=== PATIENT | female | born 1935 | race Caucasian/White ===

== ENCOUNTER 2017-02-28 02:14 | Emergency (ER) | payer MEDICARE ==
[~2017-02-28] VITALS: Ht 160 cm; Wt 65.9 kg
[~2017-02-28 02:14] MED LIST: ASPI-628 PO; CALCIT PO; CHOL400T PO; DETROL LA4 M1 PO; DILT120C8 PO; DOCU50CA7 PO; HYDR25TA4 PO; LISI-567 PO; SENN-122 PO
[2017-02-28 02:27] VITALS: BP 129/80; PULSE 60; RESP 12; O2SAT 99
--- NOTE | 2017-02-28 02:44 | ED.REPORT ---
HPI-Head Prob / Injury Date of Service Feb 28, 2017 ED Provider: Quincy Goodman MD The pt is a 81 y/o female w/ a hx of CHF, HTN and Parkinsons disease presenting to the ED due a head injury. She received a laceration to her L eyebrow after falling out of her bed. While she was on the ground she felt a strange sensation in her chest. It felt like a painful situation when she would turn her torso to the right or left. She did not strike her chest on the ground. Currently her chest is not hurting at all. There was no injury to the chest during the fall. Denies LOC or chest pain currently. Nursing Notes Stated Complaint: FALL/HIT HEAD Chief Complaint: Head injury Nursing Notes Reviewed: Yes Allergies: Coded Allergies: No Known Drug Allergies (Verified Allergy, Unknown, 02/28/17) Scheduled Aspirin (Aspir 81) 81 Mg Tablet.dr 81 MG PO DAILY Calcium Citrate (Calcium Citrate) 250 Mg Tablet 250 MG PO verify med Cholecalciferol (Vitamin D3) (Vitamin D3) 400 Unit Tablet 400 UNIT PO verify med Diltiazem ER (Diltiazem ER) 120 Mg Cap.er.deg 120 MG PO DAILY Hydrochlorothiazide (Hydrochlorothiazide) 25 Mg Tablet 25 MG PO DAILY Lisinopril (Lisinopril) 20 Mg Tablet 20 MG PO DAILY Tolterodine Tartrate ER (Detrol LA) 4 Mg Cap.sr.24h 4 MG PO DAILY Scheduled PRN Docusate Sodium (Docusate Sodium) 50 Mg Capsule 50 MG PO HS PRN PRN prn Sennosides (Vegetable Laxative) 8.6 Mg Tablet 2 TAB PO DAILY PRN PRN For Constipation General Time Seen by Provider: 03:58 Chief Complaint Other (Head injury ) Hx Obtained From: Patient Arrived By: Walk-in Onset Occurred: Just prior to arrival Symptom Duration: Since onset Recent Healthcare: No recent hospitalization, Recent doctor visit Similar Sx Previous: No Risk-Head Prob / Injury )( IC Bleed Risk Strat Blood thinners RF Statements: Risk factors reviewed Head CT Imaging Inclusion Criteria: >/= 16 yo age Non Contrast CT Indicated For: >/= 60 yrs Age Consider Non Contrast CT for: >/= 60 yo Age Fall > 3ft. Bleeding Risk Stratification RF Statements: Risk factors reviewed Past Medical History Past Medical History CHF Parkinsons disease HTN Past Surgical History None reported Smoking History Unknown if Ever Smoker Social History Other Social History: Good social support Ambulatory Status Independent Review of Systems Denies chest pain currently; + L eyebrow laceration; Neurologic: Reports: Headache, Denies: Change LOC Complete sys rev & neg: except as marked. Physical Exam Initial Vital Signs Vital Signs (First) Date Time Temp Pulse Resp B/P Pulse Ox O2 Delivery O2 Flow Rate FiO2 02/28/17 02:27 36.6 60 12 129/80 99 Room Air Initial VS: Reviewed, Vital signs normal Respiratory: Breath sounds normal, Clear to auscultation, No respiratory distress Cardiovascular: Regular rate & rhythm, Heart sounds normal, Intact distal pulses Abdomen / GI: Soft, Non-tender, No guarding, No rebound, No distention Extremities: Vascular intact, Neuro intact, No swelling, No tenderness Psychiatric: Mood/affect normal, Behavior normal, Normal thought content General/Constitutional: Awake, Alert Head / Eyes: Normocephalic, PERRL, EOMI Laceration to L eyebrow; ENT: Atraumatic, Airway patent, Mucous membranes moist Neck: Atraumatic, Supple, Full range of motion Neurologic: Oriented X3, Speech NL, CN II - XII intact No cerebellar focal defects Respiratory / Chest: Atraumatic, Breath sounds NL, Breath sounds = bilat, No respiratory distress, No rales, No rhonchi, No wheezing, No retractions, No stridor, No chest tenderness, No chest wall deformity, No crepitus Pt reports CP when she rotates her torso but no active CP right now; Interpretation & Diagnostics Lab Results Interpretation Result Diagram: 02/28/17 0510 02/28/17 0510 Test 02/28/17 05:10 White Blood Count 8.6th/mm3 (3.8-10.1) Red Blood Count 4.21mil/mm3 (3.90-5.20) Hemoglobin 13.7g/dL (12.0-15.6) Hematocrit 41.9% (35.0-46.0) Mean Corpuscular Volume 99.5fL (81-100) Mean Corpuscular Hemoglobin 32.5pg (27.0-35.0) Mean Corpuscular Hemoglobin Concent 32.7% (32.0-37.0) Red Cell Distribution Width 13.9% (12.3-15.4) Platelet Count 166bil/L (150-400) Neutrophils (%) (Auto) 66.5% (40-74) Lymphocytes (%) (Auto) 21.5% (14-46) Monocytes (%) (Auto) 8.5% (4-12) Eosinophils (%) (Auto) 3.1% (0-5) Basophils (%) (Auto) 0.2% (0-3) Sodium Level 137mEq/L (134-144) Potassium Level 5.2mEq/L (3.5-5.2) Chloride Level 95mEq/L (97-108) Carbon Dioxide Level 29mmol/L (18-29) Blood Urea Nitrogen 55mg/dL (8-27) Creatinine 1.30mg/dL (0.57-1.00) Estimat Glomerular Filtration Rate 56mL/min (>59) Glucose Level 130mg/dL (60-99) Calcium Level 10.3mg/dL (8.5-10.1) Total Bilirubin 0.5mg/dL (0.0-1.2) Aspartate Amino Transf (AST/SGOT) 16U/L (0-50) Alanine Aminotransferase (ALT/SGPT) 5U/L (0-32) Alkaline Phosphatase 84U/L (25-165) Troponin T 0.010ug/L (0.0-0.011) Total Protein 7.3g/dL (6.4-8.4) Albumin 4.3g/dL (3.4-5.0) Hold Larose Top Tube Received (Received) ECG Interpretation ECG Interpretation: Rate 58 NSR Left anterior fascicular block Low voltage, precordial leads Probable anteroseptal infarct, old Time: 03:04 Interpreted by: ED physician ECG Interpretation: Rate 60 NSR Inferior infarct, old Anterior infarct, old Time: 04:22 Interpreted by: ED physician CT Head Interpretation Conclusion: Left frontal scalp contusion w/ small laceration. Mild involutional changes. Mild patchy low density bilaterally in the deep white matter likely due to chronic ischemic small vessel disease. No acute intracranial abnormality. This report was transmitted to the emergency room at 02/28/17 3:04:41 AM PDT. Study: Head CT no contrast Interpretation / Wet Read by: Interpret - Radiologist Procedures Laceration Management Laceration Management: The depth that the wound was explored and examined in a bloodless field. No tendon injury. No foreign body. Time: 04:50 Procedure Performed by: ED resident Consent / Setup / Site Prep: Consent from patient, Hand hygiene observed, Stand sterile technique Location of Wound: Left eyebrow Wound Length: 2 cm Local Anesthesia: Lidocaine 1% Digital Block: No Wound Preparation: Normal saline Debridement: None Irrigation: Copious Foreign Body Explore / Removal: Explored for foreign body Repair Skin: ___ O (4), Vicryl # Sutures - Skin: 4 Closure Layers: 1 Re-Eval/Medical Decision Med Decision/Clinical Course CT scan of her brain was reassuring. The wound closed well. EKG showed sinus rhythm. There are some nonspecific ST changes especially in V2. There are however Q waves. There is now voltage criteria for STEMI. First troponin was negative. Mrs. Maurer insisted on being discharged home. Her daughter was with her and her daughter has a bad knee and I believe recently had knee surgery and she wants to get home and get off her feet. Mrs. Uriarte not having any chest pain whatsoever. She has shows no signs of any chest trauma on physical exam and she feels well being discharged home. The troponin was about a 3 hour troponin so this should rule out acute coronary syndrome. I did tell her that if she has any further chest pain that she needs to come right back and we would absolutely considering admitting her if she would consider that now. She would like to go home. She agrees to come back if any problems. She is discharged in stable condition. Source of Hx: Old records Counseled Regarding: Diagnosis, Lab results, Need for follow-up, When/why to return to ED Discharge & Departure Primary Impression: Laceration of forehead Encounter type: initial encounter Qualified Code: S01.81XA - Laceration without foreign body of other part of head, initial encounter Additional Impression: Chest pain Chest pain type: unspecified Qualified Code: R07.9 - Chest pain, unspecified Disposition: Home All VS Reviewed: Yes Condition: Stable Patient Instructions: Chest Pain (ED), Laceration (ED) Additional Instructions: Keep the wound clean and covered with antibacterial ointment. Read the aftercare instructions given. The cause of her chest pain is uncertain and should be followed up with by her primary care physician or with hospitalization. If the pain returns then come right back to the ED. Have a wound check in 48 hours. Stiches out in 5-7 days. Watch for signs of infection : pain, redness or discharge and return if any of these occur. Call her doctor on Wednesday to set up a follow up appointment for this week. Referrals: Jazmine Yip (PCP) Scribe Attestation Portions of this note were transcribed by Ruddy Vasquez. I, Dr. Goodman personally performed the history, physical exam and medical decision-making; I reviewed and confirmed the accuracy of the information in the transcribed note. copies to: Jazmine Yip Todd P DO Feb 28, 2017 02:44 Ruddy Vasquez Feb 28, 2017 04:24 Jazmyne Mi DO Feb 28, 2017 05:18
[2017-02-28 05:19] LABS: BASOPHILS % (AUTO) 0.2 % (0-3); EOSINOPHILS % (AUTO) 3.1 % (0-5); MONOCYTES % (AUTO) 8.5 % (4-12); Mean Corpuscular Hemoglobin 32.5 pg (27.0-35.0); Mean Corpuscular Volume 99.5 fL (81-100); NEUTROPHILS % (AUTO) 66.5 % (40-74); Platelet Count 166 bil/L (150-400)
[2017-02-28 05:29] VITALS: BP 133/78; PULSE 64; RESP 14; O2SAT 99
[2017-02-28 05:44] LABS: TROPONIN T 0.01 ug/L (0.0-0.011)
--- NOTE | 2017-02-28 09:31 | DRSVH ---
PROCEDURE: CT BRAIN WITHOUT CONTRAST ([id number]) INDICATIONS: fall, head injury TECHNIQUE: Noncontrast 4.5 mm thick angled axial sections acquired from the foramen magnum to the vertex, with c oronal reformats. COMPARISON: [facility], CT, BRAIN W/O CONTRAST, 03/20/2008, 19:19. FINDINGS: Image quality: Excellent. CSF spaces: Basal cisterns are patent. No extra-axial fluid collections. The ventricles are symmet jaspreet in size and shape. Brain: No intracranial bleeds or masses. There is cerebral volume loss for age, with resultant vent ricular and sulcal prominence. There are periventricular and deep white matter chronic small vessel ischemic changes. There is intracranial internal carotid artery atherosclerosis. Skull and face: Calvarium and visualized facial bones appear intact, without suspicious lesions. Sinuses: Visualized sinuses and mastoids are clear. IMPRESSION: 1. No acute intracranial process. 2. Moderate atrophy and chronic microvascular ischemic changes. Dictated by: Floridalma Michaels M.D. on 02/28/2017 at 9:28 Approved by: Floridalma Michaels M.D. on 02/28/2017 at 9:29
== END 2017-02-28 05:30 | disposition home or self-care (01) ==
LOC: SED 02:14
DX: S01.81XA Laceration without foreign body of other part of head, initial encounter (principal); W06.XXXA Fall from bed, initial encounter; Y93.89 Activity, other specified; Y92.009 Unspecified place in unspecified non-institutional (private) residence as the place of occurrence of the external cause; Y99.8 Other external cause status; R07.9 Chest pain, unspecified; I11.0 Hypertensive heart disease with heart failure; I50.9 Heart failure, unspecified; G20 Parkinson's disease; Z79.82 Long term (current) use of aspirin

== ENCOUNTER 2017-03-06 08:56 | Emergency (ER) | payer MEDICARE ==
[~2017-03-06] VITALS: Ht 160 cm; Wt 65.9 kg
[2017-03-06 09:01] VITALS: BP 159/76; PULSE 61; RESP 16; O2SAT 99
--- NOTE | 2017-03-06 09:14 | ED.REPORT ---
HPI-GI Bleed Date of Service Mar 06, 2017 ED Provider: Zach Short MD Mrs. Maurer is a 81-year-old female with a history of colon cancer sense to the ED for rectal bleeding and rectal pain. The bleeding and pain started 4 days ago. The bleeding only occurs after she wipes. The blood is very minimal and bright red. Patient noted that it started when she was constipated. She has tried laxatives and stool softeners. Pain is better when she lies down or if she sits. Pain is worse with standing. Patient denies any fevers or chills, chest pain, shortness of breath, abdominal pain, nausea or vomiting. Nursing Notes Stated Complaint: RECTAL BLEEDING Chief Complaint: Female Abdominal Pain Allergies: Coded Allergies: No Known Drug Allergies (Verified Allergy, Unknown, 03/06/17) Scheduled Aspirin (Aspir 81) 81 Mg Tablet.dr 81 MG PO DAILY Calcium Citrate (Calcium Citrate) 250 Mg Tablet 250 MG PO verify med Cholecalciferol (Vitamin D3) (Vitamin D3) 400 Unit Tablet 400 UNIT PO verify med Diltiazem ER (Diltiazem ER) 120 Mg Cap.er.deg 120 MG PO DAILY Hydrochlorothiazide (Hydrochlorothiazide) 25 Mg Tablet 25 MG PO DAILY Lisinopril (Lisinopril) 20 Mg Tablet 20 MG PO DAILY Pramoxine HCl/Zinc Oxide (Hemorrhoid 1%-12.5% Ointment) 1 %-12.5 % Oint...g. 56 GM TP 1-5 times a day Tolterodine Tartrate ER (Detrol LA) 4 Mg Cap.sr.24h 4 MG PO DAILY Scheduled PRN Docusate Sodium (Docusate Sodium) 50 Mg Capsule 50 MG PO HS PRN PRN prn Sennosides (Vegetable Laxative) 8.6 Mg Tablet 2 TAB PO DAILY PRN PRN For Constipation General Time Seen by Provider: 09:10 Chief Complaint Chief Complaint: Abdominal pain Bleeding Severity: Minimal Hx Obtained From: Patient Arrived By: Walk-in Onset Occurred: 4 days ago Context of Onset: Bleeding after BM Progression Since Onset: Constant Quality: Painful Associated with: Reports: Rectal pain Pertinent Negative: Pt denies other symptoms Risk-GI Bleed Risk Notes: History of colon cancer. Past Medical History Past Medical History CHF Parkinsons disease HTN colon cancer Past Surgical History colon resection x2 Reports: Appendectomy, Hysterectomy, Tonsillectomy Smoking History Former Smoker, Unknown if Ever Smoker Social History Alcohol Use: Denies alcohol use Drug Use: Denies drug use Other Social History: Good social support Ambulatory Status Independent Review of Systems Basic Review of Systems Eyes: Vision NL, No discharge : No dysuria, No frequency Musculoskeletal: No extremity swelling, No extremity pain, Full range of motion , Joints NL Endocrine: No cold intolerance, No heat intolerance, No weight gain, No weight loss Allergy / Immune: No allergy Psychiatric: Normal thought content Constitutional: Denies: Chills, Fever Respiratory: Denies: Shortness of breath Cardiovascular: Denies: Chest pain GI: Reports: Constipation, Rectal pain, Denies: Abdominal pain, Melena, Nausea, Vomiting Complete sys rev & neg: except as marked. Physical Exam Initial Vital Signs Vital Signs (First) Date Time Temp Pulse Resp B/P Pulse Ox O2 Delivery O2 Flow Rate FiO2 03/06/17 09:01 36.5 61 16 159/76 99 Room Air Head / Eyes: PERRL ENT: Mucous membranes moist, Conjunctiva normal, No scleral icterus Neck: Supple, Non-tender, Full range of motion Back: No CVA tenderness Lymphatic: No lymphadenopathy Extremities: Vascular intact, Neuro intact, No swelling, No tenderness Skin: Warm, Dry, No cyanosis Neurologic: Alert, Oriented, Nonfocal Psychiatric: Mood/affect normal, Behavior normal, Normal thought content Respiratory / Chest: Breath sounds NL, Breath sounds = bilat, No respiratory distress, No rales, No rhonchi, No wheezing Cardiovascular: Heart rate NL, Regular rhythm, Heart sounds NL, No murmurs, Cap refill not delayed, Peripheral circulation NL Abdomen: Soft, Non-tender, No guarding, No rebound, BS normoactive, No distention, No palpable mass, No pulsatile mass Rectum / Perineum: No gross blood, No discharge, No fecal impaction, Sphincter tone NL Rectum / Perineum Abnl: Positive: Hemorrhoid external Erythema around anal sphincter. Stool guaiac negative. Interpretation & Diagnostics Lab Results Interpretation Result Diagram: 03/06/1791903/06/17919 Test 03/06/17 09:20 White Blood Count 9.5th/mm3 (3.8-10.1) Red Blood Count 4.12mil/mm3 (3.90-5.20) Hemoglobin 13.5g/dL (12.0-15.6) Hematocrit 41.7% (35.0-46.0) Mean Corpuscular Volume 101.2fL (81-100) Mean Corpuscular Hemoglobin 32.8pg (27.0-35.0) Mean Corpuscular Hemoglobin Concent 32.4% (32.0-37.0) Red Cell Distribution Width 13.9% (12.3-15.4) Platelet Count 191bil/L (150-400) Neutrophils (%) (Auto) 72.0% (40-74) Lymphocytes (%) (Auto) 18.1% (14-46) Monocytes (%) (Auto) 8.1% (4-12) Eosinophils (%) (Auto) 1.4% (0-5) Basophils (%) (Auto) 0.2% (0-3) Prothrombin Time 9.3sec (8.1-12.5) Prothromb Time International Ratio 0.87ratio Sodium Level 138mEq/L (134-144) Potassium Level 4.6mEq/L (3.5-5.2) Chloride Level 96mEq/L (97-108) Carbon Dioxide Level 28mmol/L (18-29) Blood Urea Nitrogen 53mg/dL (8-27) Creatinine 1.19mg/dL (0.57-1.00) Estimat Glomerular Filtration Rate 62mL/min (>59) Glucose Level 125mg/dL (60-99) Calcium Level 10.2mg/dL (8.5-10.1) Total Bilirubin 0.5mg/dL (0.0-1.2) Aspartate Amino Transf (AST/SGOT) 14U/L (0-50) Alanine Aminotransferase (ALT/SGPT) 10U/L (0-32) Alkaline Phosphatase 91U/L (25-165) Troponin T 0.010ug/L (0.0-0.011) Total Protein 8.1g/dL (6.4-8.4) Albumin 4.5g/dL (3.4-5.0) Hold Larose Top Tube Received (Received) Re-Eval/Medical Decision Med Decision/Clinical Course Mrs. Maurer is a 81-year-old female with a history of colon cancer presents to the ED with rectal bleeding and pain. The bleeding is very minimal and only when she wipes. Rectal exam showed no gross blood. Stool guaiac was negative. Hemoglobin was normal at 13.5. Discharge & Departure Impression: Primary Impression: Hemorrhoids Hemorrhoid type: unspecified Qualified Code: K64.9 - Unspecified hemorrhoids Additional Impression: Rectal bleeding Disposition: Home Discharge Condition All VS Reviewed: Yes Condition: Stable Patient Instructions: Hemorrhoids (ED) Additional Instructions: Labs show that your hemoglobin is normal. Rectal exam that we did showed that you had signs of blood microscopically. The bleeding from your bottom is likely due to your hemorrhoids. Maintaining a high-fiber diet and increasing your water intake will help with hemorrhoids. Your bottom is very red and inflamed. We are prescribing a ointment that you can use for pain relief. You can use this ointment up to 5 times a day. Follow-up with your primary care provider or further management. We're giving you the number to the GI specialist. You can call them on Wednesday and inform them that you're in the ED for rectal bleeding and that you are due for a colonoscopy. You experience any symptoms of black stools, large amounts of blood in the stool , lightheadedness, shortness of breath, chest pain please returned to the ED. I hope you feel better. Referrals: Jazmien Yip (PCP) Arie Puentes MD EDSupervising Provider for APC: Zach Short MD Attending Statement I discussed case with resident Dr. Mi and I evaluated the patient independently and agree with plan as above. In brief, 81-year-old female presenting complaining of rectal bleeding times one day. She does have hemorrhoids. There is no blood on the rectal exam and she is guaiac negative. Her hemoglobin is stable. She does have a history of colon cancer and is due for colonoscopy. Given her normal hemoglobin guaiac negative suspect this may be hemorrhoids though I do believe she needs a colonoscopy though this can be deferred to outpatient given no active bleeding, negative guaiac, stable hemoglobin. She will be discharged home with plans to follow up with GI. We gave her their phone number. Return precautions given if any new or worsening bleeding or sign symptoms of anemia. Discussed with patient and family extensively and they agree with this plan. Zach Short MD Mar 06, 2017 09:14 Jazmyne Mi DO Mar 06, 2017 09:15
[2017-03-06 09:36] LABS: BASOPHILS % (AUTO) 0.2 % (0-3); EOSINOPHILS % (AUTO) 1.4 % (0-5); MONOCYTES % (AUTO) 8.1 % (4-12); Mean Corpuscular Hemoglobin 32.8 pg (27.0-35.0); Mean Corpuscular Volume 101.2 fL (81-100); Platelet Count 191 bil/L (150-400)
[2017-03-06] MEDS ORDERED: PRAM56OI TP (09:51)
[2017-03-06 09:59] LABS: INR 0.87 ratio
[2017-03-06 10:11] LABS: TROPONIN T 0.01 ug/L (0.0-0.011)
[2017-03-06 10:59] VITALS: BP 145/52; PULSE 63; RESP 16
[2017-03-06 11:04] VITALS: BP 145/52; PULSE 63; RESP 16; O2SAT 99
== END 2017-03-06 11:00 | disposition home or self-care (01) ==
LOC: SED 08:56
DX: K64.4 Residual hemorrhoidal skin tags (principal); K62.5 Hemorrhage of anus and rectum; I11.0 Hypertensive heart disease with heart failure; I50.9 Heart failure, unspecified; Z85.038 Personal history of other malignant neoplasm of large intestine; Z90.710 Acquired absence of both cervix and uterus; Z87.891 Personal history of nicotine dependence; Z79.82 Long term (current) use of aspirin